=== PATIENT | male | born 2005 | race Hispanic/Latino ===

== ENCOUNTER 2024-04-28 23:54 | Emergency (ER) | payer SELFPAY ==
[2024-04-29 00:14] LABS: #Basophils 0.1 thou/uL (0.0-0.2); #Eosinophils 1.1 thou/uL (0.0-0.7); #Lymphocytes 3.1 thou/uL (1.20-3.40); #Monocytes 0.7 thou/uL (0.11-0.59); #Neutrophils 4.7 thou/uL (1.40-6.50); %Eosinophils 11.4 % (0.0-10.0); %Lymphocytes 32.2 % (28.0-48.0); %Monocytes 7.1 % (0.0-4.0); %Neutrophils 48.3 % (31.0-61.0); Hematocrit 44.8 % (42.0-52.0); Hemoglobin 14.9 g/dL (14.0-18.0); Mean Corpuscular HGB CONC 33.2 g/dL (32.0-36.0); Mean Corpuscular Volume 84.3 fl (78.0-98.0); Mean Platelet Volume 8.8 fL (7.4-10.4); Platelet Count 259 10x3/uL (130-400); RBC Distribution Width 11.9 % (11.5-14.5); Red Blood Cell (RBC) Count 5.31 mill/uL (4.00-5.20); White Blood Cell (WBC) Count 9.8 10x3/uL (4.8-10.8)
[2024-04-29] MEDS ORDERED: Sodium Chloride 0.9% 1,000 ML ONE (00:22)
[2024-04-29] MEDS ORDERED: Aspirin Chewable 81 MG TAB ONE (00:22)
[2024-04-29 00:28] LABS: Acetaminophen Less than 10 mcg/mL (Less than 10); Alcohol Less than 10.0 mg/dL (Less than 10); Salicylate Less than 8.0 mg/dL (Less than 8.0)
[2024-04-29 00:30] LABS: ALT (SGPT) 23 U/L (8-55); AST (SGOT) 27 U/L (5-34); Albumin 4.4 g/dL (3.5-5.0); Alkaline Phosphatase 114 U/L (50-130); Anion Gap 17 mmol/L (10-20); BUN (Urea Nitrogen) 24 mg/dL (8.9-20.6); Bilirubin, Total 0.3 mg/dL (0.2-1.2); Calc. Creatinine Clearance 0 mL/min (70-130); Calcium 9.9 mg/dL (7.8-10.44); Carbon Dioxide 21 mmol/L (22-29); Chloride 103 mmol/L (98-107); Estimated GFR 68; Globulin 3.1 g/dL (2.4-3.5); Glucose 128 mg/dL (70-105); Potassium 3.5 mmol/L (3.5-5.1); Protein, Total 7.5 g/dL (6.0-8.3); Sodium 137 mmol/L (136-145)
[2024-04-29 00:33] LABS: Troponin I 0.012 ng/mL (< 0.028)
[2024-04-29 00:46] LABS: Amphetamine Not Detected (NotDetected); Barbiturates Screen Not Detected (NotDetected); Benzodiazepine Screen Not Detected (NotDetected); Cocaine Metabolite Screen Not Detected (NotDetected); Methadone Not Detected (NotDetected); Methamphetamine Not Detected (NotDetected); Opiate Screen Not Detected (NotDetected); Oxycodone Screen Not Detected (NotDetected); Phencyclidine (PCP) Not Detected (NotDetected); THC/Cannabinoid Screen Not Detected (NotDetected); Tricyclic Screen Not Detected (NotDetected)
== END 2024-04-29 01:10 | disposition home or self-care (01) ==
LOC: MADERS 23:54
DX: R07.9 Chest pain, unspecified (principal)
CPT/HCPCS: 71045; 80053; 80306; 80307; 83880; 84484; 85025; 85379; J7030